=== PATIENT | female | born 1970 | race Caucasian/White ===

== ENCOUNTER 2021-02-11 17:52 | Inpatient (IN) | payer OTHER ==
[~2021-02-11] VITALS: Ht 165.1 cm; Wt 56.3 kg
[2021-02-11 18:06] VITALS: BP 120/85
--- NOTE | 2021-02-11 18:10 | NUR ---
ARRIVAL PATIENT ARRIVED TO ED3 VIA W/C, C/O OF SHORTNESS OF BREATH AND PAIN WITH COUGHING FOR THE PAST COUPLE OF DAYS, DOES HAVE A HISTORY OF BREAST CANCER AND HAS BOTH BREAST REMOVED, WAS TOLD BY A CLINIC IN [place] THAT SHE MAY NOW HAVE CANCER IN HER LUNGS,CAME TO THE ED FOR EVAL,
[2021-02-11] MEDS ORDERED: TESSALON PERLE PO STA (18:13)
[2021-02-11] MEDS ORDERED: TESSALON PERLE PO ONE (18:18)
[2021-02-11 18:26] LABS: BASOPHIL # 0.1 10^3/uL (0.0-0.1); EOSINOPHIL # 0.1 10^3/uL (0.0-0.2); EOSINOPHIL % 1.9 % (0.0-5.0); MEAN CORP HGB 30.7 pg (26-34); MONOCYTES # 0.3 10^3/uL (0.3-0.8); MONOCYTES % 4.6 % (5.0-12.0); NEUTROPHIL # 5.4 10^3/uL (1.8-7.7); NEUTROPHILS % 74.5 % (41.0-85.0); PLATELET COUNT 321 10^3/uL (150-400); RED CELL DISTRIBUTION WIDTH 14.7 % (11.5-14.5)
--- NOTE | 2021-02-11 18:40 | DIREP ---
PROCEDURE:CHEST 1 VIEW COMPARISON:None. INDICATIONS:CHEST PAIN FINDINGS: LUNGS/PLEURA:Diffuse interstitial prominence and mild silhouetting of the right hemidiaphragm. No sizable pleural effusion. CARDIAC:Normal cardiac silhouette and normal pulmonary vascularity. MEDIASTINUM:Normal BONES:Normal OTHER:No additional findings. CONCLUSION:Chronic changes versus interstitial edema or pneumonia. Dictated by: Khalida Avendano MD on 02/11/2021 at 06:37 PM
[2021-02-11 18:43] LABS: CALCIUM 8.8 mg/dL (8.4-10.5); CARBON DIOXIDE 24.2 mmol/L (20.0-32)
[2021-02-11] MEDS ORDERED: MORPHINE SULFATE ONE (20:08)
[2021-02-11] MEDS ORDERED: ATIVAN ONE (20:36)
[2021-02-11] MEDS ORDERED: ATIVAN IV STA (20:50)
[2021-02-11 21:11] LABS: BILIRUBIN,URINE NEGATIVE (NEGATIVE); UA COLOR YELLOW
[2021-02-11 21:12] LABS: UROBILINOGEN,URINE 0.2 E.U./dL (0.2)
--- NOTE | 2021-02-11 22:40 | DIREP ---
PROCEDURE:CTA CHEST COMPARISON:None. INDICATIONS:chest pain TECHNIQUE:Post contrast axial images through the chest with multiplanar MIP/3D reconstructions. FINDINGS: PULMONARY ARTERIES:Patent. LUNGS:Scattered areas of presumed subsegmental atelectasis in the bilateral lungs. PLEURA:Moderate dependent bilateral pleural effusions. CARDIAC:Normal size heart and normal pulmonary vascularity. RV:LV ratio (norm <0.9): Not applicable in the absence of pulmonary embolism. THORACIC AORTA:Normal. MEDIASTINUM:Normal. THYROID:Normal. BONES:Normal. OTHER:No additional findings. CONCLUSION: No evidence of pulmonary embolus. Moderate dependent bilateral pleural effusions Dictated by: Morgan Case M.D. on 02/11/2021 at 10:36 PM
[2021-02-11] MEDS ORDERED: ROBITUSSIN AC PO STA (22:45)
[2021-02-11] MEDS ORDERED: ROBITUSSIN AC ONE (23:39)
[2021-02-11] MEDS: DILAUDID IV PRN (23:44)
[2021-02-12] MEDS ORDERED: ZITHROMAX PO ONE
[2021-02-12] MEDS ORDERED: NS 100ML 100 ML IV ONE (00:01)
[2021-02-12] MEDS ORDERED: ZITHROMAX ONE ×2 (00:01→00:08)
[2021-02-12] MEDS ORDERED: ROCEPHIN ONE (00:01)
[2021-02-12] MEDS: ROCEPHIN 1,000 MG in NS 100ML 100 ML IV SCH ×2 (00:10→23:13)
--- NOTE | 2021-02-12 00:26 | ER.PDOC ---
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 Patient states that the chest pain has been severe and is worse with big breaths and coughing causing her to have to splint her breathing. She also endorses some yellow coverage sputum production with a cough. She denies fevers but endorses chills.She has had no known sick conta cts. She was told had previous clinic in the past that she might have a lung cancer but she is not had any additional follow-up on this. Allergies: Coded Allergies: aspirin (Verified Allergy, Unknown, 02/11/21) Past Medical History Medical History: cancer Surgical History: cancer surgery, hysterectomy Social History Alcohol Use: occassionally Drug Use: none Review of Systems Constitutional: denies no symptoms reported, denies see HPI; chills; denies diaphoresis, denies fever, denies malaise, denies weakness, denies other EENTM: denies no symptoms reported, denies see HPI, denies eye pain, denies blurred vision, denies tearing, denies double vision, denies ear pain, denies ear discharge, denies nose pain, denies nose congestion, denies throat pain, denies throat swelling, denies mouth pain, denies mouth swelling, denies other Respiratory: denies no symptoms reported, denies see HPI; cough; denies orthopnea; shortness of breath; denies stridor, denies wheezing, denies other Cardiovascular: denies no symptoms reported, denies see HPI; chest pain (With coughing.); denies edema, denies palpitations, denies syncope, denies other Gastrointestinal: denies no symptoms reported, denies see HPI, denies abdominal pain, denies constipation, denies diarrhea, denies nausea, denies vomiting, denies other Genitourinary: denies no symptoms reported, denies see HPI, denies discharge, denies dysuria, denies frequency, denies hematuria, denies pain, denies other Musculoskeletal: denies no symptoms reported, denies see HPI, denies back pain, denies gout, denies joint pain, denies joint swelling, denies muscle pain, denies muscle stiffness, denies neck pain, denies other Skin: denies no symptoms reported, denies see HPI, denies change in color, denies change in hair/nails, denies dryness, denies lesions, denies lumps, denies rash, denies other Psychiatric/Neurological: denies no symptoms reported, denies see HPI, denies anxiety, denies depressed, denies emotional problems, denies headache, denies numbness, denies paresthesia, denies pre-existing deficit, denies seizure, denies tingling, denies tremors, denies weakness, denies other Hematologic/Lymphatic: denies no symptoms reported, denies see HPI, denies anemia, denies blood clots, denies easy bleeding, denies easy bruising, denies swollen glands, denies other Immunological/Allergic: denies no symptoms reported, denies see HPI, denies food allergy, denies grass allergy, denies mold allergy, denies pollen allergy, denies HIV/AIDS, denies transplant Physical Exam General Appearance: Moderate Distress EENT: eyes nml inspection, nml ENT inspection, pharynx nml Neck: Non-Tender, Full Range of Motion Respiratory: decreased breath sounds, rhonchi, other (Patient with chest wall tenderness. Patient sitting up in bed splinting due to pain. 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, No Motor/Sensory Deficits Skin: Normal Color Results/Orders Results/Orders Orders - JEN HARPER DO Cbc With Auto Diff (02/11/21 18:13) Comprehensive Metabolic Panel (02/11/21 18:13) Xr Chest 1v (02/11/21 18:13) Benzonatate (Tessalon Perle) (02/11/21 18:13) Morphine Sulfate (Morphine Sulfate) (02/11/21 20:08) Cta Chest (02/11/21 20:15) Lorazepam (Ativan) (02/11/21 20:36) Lorazepam (Ativan) (02/11/21 20:50) Urinalysis (02/11/21 20:55) Urine Culture (02/11/21 20:30) Hydromorphone Hcl (Dilaudid) (02/11/21 22:00) Codeine Phosphate/Guaifenesin (Robitussi (02/11/21 22:45) Codeine Phosphate/Guaifenesin (Robitussi (02/11/21 23:39) Ceftriaxone Sodium (Rocephin) (02/12/21 00:00) Azithromycin (Zithromax) (02/12/21 00:00) Probnp B-Type Central Processing Tech (02/11/21 23:57) 0.9 % Sodium Chloride (Ns 100ml) (02/12/21 00:01) Ceftriaxone Sodium (Rocephin) (02/12/21 00:01) Azithromycin (Zithromax) (02/12/21 00:01) Azithromycin (Zithromax) (02/12/21 00:08) Routine Vital Signs (02/12/21 00:34) Up Ad Lyla/Low Risk Vte (02/12/21 00:34) Cbc With Auto Diff (02/13/21 05:00) Comprehensive Metabolic Panel (02/13/21 05:00) Admit Orders (02/12/21 00:34) Ekg-Routine (02/12/21 00:40) Vital Signs Date Time Temp Pulse Resp B/P (MAP) Pulse Ox O2 Delivery O2 Flow Rate FiO2 02/11/21 18:06 97.9 117 28 02/11/21 18:06 97.9 117 28 92 02/11/21 18:06 97.9 117 28 120/85 (97) 92 Room Air Administered Medications Medications (Trade) Dose Ordered Sig/Damian Route PRN Reason Start Time Stop Time Status Last Admin Dose Admin Azithromycin (Zithromax) 500 mg OT ONCE PO 02/12/21 00:00 02/12/21 00:01 DC 02/12/21 00:14 500 MG Benzonatate (Tessalon Perle) 100 mg STAT STAT PO 02/11/21 18:13 02/11/21 18:15 DC 02/11/21 18:20 100 MG Ceftriaxone Sodium 1000 mg/ Sodium Chloride 100 ml @ 100 mls/hr Q24HRS IV 02/12/21 00:00 03/14/21 00:00 02/12/21 00:10 100 MLS/HR Hydromorphone HCl (Dilaudid) 0.5 mg Q4H PRN IV PAIN 7 - 10 02/11/21 22:00 03/13/21 21:59 UNV 02/11/21 23:44 0.5 MG Lorazepam (Ativan) 1 mg STAT STAT IV 02/11/21 20:50 02/11/21 20:51 DC 02/11/21 20:50 1 MG Laboratory Tests Test 02/11/21 18:20 02/11/21 20:30 White Blood Count 7.2 10^3/uL (4.5-11.0) Red Blood Count 3.84 10^6/uL (4.00-5.20) L Hemoglobin 11.8 g/dL (12.0-15.0) L Hematocrit 37.0 % (36.0-46.0) Mean Corpuscular Volume 96.4 fL (78-100) Mean Corpuscular Hemoglobin 30.7 pg (26-34) Mean Corpuscular Hemoglobin Concent 31.9 g/dL (33-36.5) L Red Cell Distribution Width 14.7 % (11.5-14.5) H Platelet Count 321 10^3/uL (150-400) Mean Platelet Volume 10.2 fL (7.8-11.0) Neutrophils (%) (Auto) 74.5 % (41.0-85.0) Lymphocytes (%) (Auto) 18.0 % (24.0-44.0) L Monocytes (%) (Auto) 4.6 % (5.0-12.0) L Neutrophils # (Auto) 5.4 10^3/uL (1.8-7.7) Lymphocytes # (Auto) 1.30 10^3/uL1 (1.0-4.8) Monocytes # (Auto) 0.3 10^3/uL (0.3-0.8) Absolute Immature Granulocyte (auto 0.02 10^3 u/L (0-2) Absolute Eosinophils (auto) 0.1 10^3/uL (0.0-0.2) Immature Granulocytes % 0.30 % (0.00-0.50) Eosinophils % 1.9 % (0.0-5.0) Basophils % 1.0 % (0.0-0.2) H Basophils # 0.1 10^3/uL (0.0-0.1) Sodium Level 142 mmol/L (132-145) Potassium Level 4.4 mmol/L (3.6-5.2) Chloride Level 107.0 mmol/L (96-109) Carbon Dioxide Level 24.2 mmol/L (20.0-32) Anion Gap 15.2 Blood Urea Nitrogen 19 mg/dL (7-18) H Creatinine 1.36 mg/dL (0.59-1.40) Estimated GFR () 50.2 (>/=60) Est GFR (CKD-EPI)(Non-Afr Kosovan) 41.5 (>/=60) BUN/Creatinine Ratio 13.0 Glucose Level 123 mg/dL (70-110) H Calcium Level 8.8 mg/dL (8.4-10.5) Total Bilirubin 0.7 mg/dL (0.2-1.0) Aspartate Amino Transferase (AST) 29 U/L (0-35) Alanine Aminotransferase (ALT) 72 U/L (12-78) Alkaline Phosphatase 118 U/L (50-136) Pro-B-Type Natriuretic Peptide 09300 pg/mL (0-125) H Total Protein 6.1 g/dL (6.4-8.2) L Albumin 3.3 g/dL (3.4-5.0) L Globulin 2.8 Albumin/Globulin Ratio 1.178 Urine Collection Type UNKNOWN Urine Color YELLOW Urine Appearance CLEAR Urine Bilirubin NEGATIVE (NEGATIVE) Urine Ketones NEGATIVE (NEGATIVE) Urine Specific [place]ouch >=1.030 (1.005-1.030) Urine pH 5.5 (4.5-8.0) Urine Protein 30 mg/dL (NEGATIVE) H Urine Urobilinogen 0.2 E.U./dL (0.2) Urine Nitrate NEGATIVE (NEGATIVE) Urine Leukocyte Esterase NEGATIVE (NEGATIVE) Urine Glucose (Auto)(UA) NEGATIVE (NEGATIVE) Urine Blood MODERATE (NEGATIVE) H Urine RBC 5-10 RBC/HPF (NONE SEEN) H Urine WBC 2-5 WBC/HPF (0-2) Urine Squamous Epithelial Cells MODERATE #/HPF (FEW) Urine Calcium Oxalate Crystals FEW (NONE SEEN) Urine Bacteria FEW (NONE SEEN) H Urine Other MUCOUS 1+ #/HPF Progress Progress Patient received Dilaudid for pain control and Ativan due to severe anxiety in the CT machine. Patient had continued severe chest pain throughout ER course that began to subside after pain medication was administered. She did require some supplemental oxygen due to mild hypoxia in the high 80s.CTPA without evidence of pulmonary embolism but does demonstrate moderate bilateral pleural effusions. EKG/XRAY/CT/US EKG Comments: EKG with sinus tachycardia nonspecific T wave changes XRAY Comments: X-ray with infiltrates versus edema CT Comments: No evidence of pulmonary embolism noted bilateral moderate polyp pulmonary Consult/PCP Time Consult/PCP Called: 23:54 Consult/PCP: Hospitalist, Dr. Gallo Reason/Comments: Dyspnea pulmonary effusions agreed for inpatient admission to observation. ER DEPART Departure Time of Disposition: 01:02 Disposition: 09 ADMITTED INPATIENT Impression: Primary Impression: Dyspnea Additional Impression: Pleural effusion Condition: Improved Referrals: PCP,UNKNOWN (PCP) PRIMARY CARE PROVIDER Duration or Time Spent with Pa: 30 Problem Qualifiers JEN HARPER DO Feb 12, 2021 00:26
--- NOTE | 2021-02-12 00:43 | PCM.EKG ---
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
--- NOTE | 2021-02-12 00:59 | NUR ---
REPORT CALLED AND GIVEN TO JEFF BLUNT AT THIS TIME.
[2021-02-12] MEDS ORDERED: MORPHINE SULFATE IV PRN (01:30)
[2021-02-12] MEDS ORDERED: ZOFRAN IV PRN (01:30)
[2021-02-12] MEDS ORDERED: TYLENOL PO PRN ×2 (01:30→08:30)
[2021-02-12 01:35] VITALS: BP 115/86
--- NOTE | 2021-02-12 01:35 | NUR ---
ARRIVAL TO M/S VIA WHEELCHAIR NO ACUTE DISTRESS NOTED REC REPORT FROM MARIBEL PERZE ASSUMED CARE
--- NOTE | 2021-02-12 02:00 | NUR ---
TELEPHONE ORDERS DR GO TYLENOL 650MG PO Q6PRN PAIN 1-3 & FEVER TRAMADOL 50MG PO Q6PRN FOR PAIN 4-6 MORPHINE 2MG IV Q4PRN FOR PAIN 7-10 ZOFRAN IV 4MG Q6PRN FOR N/V
[2021-02-12 04:22] VITALS: BP 124/80
[2021-02-12 08:11] VITALS: BP 129/82
[2021-02-12] MEDS ORDERED: LASIX IV STA ×2 (08:24→09:24)
[2021-02-12 08:49] LABS: BASOPHIL % 0.3 % (0.0-0.2); EOSINOPHIL # 0.2 10^3/uL (0.0-0.2); EOSINOPHIL % 2.6 % (0.0-5.0); LYMPHOCYTES # 1.23 10^3/uL1 (1.0-4.8); LYMPHOCYTES % 21.1 % (24.0-44.0); MONOCYTES # 0.3 10^3/uL (0.3-0.8); MONOCYTES % 4.5 % (5.0-12.0); NEUTROPHIL # 4.2 10^3/uL (1.8-7.7); NEUTROPHILS % 71.3 % (41.0-85.0); PLATELET COUNT 278 10^3/uL (150-400); RED CELL DISTRIBUTION WIDTH 14.9 % (11.5-14.5)
[2021-02-12 09:08] LABS: CALCIUM 8.9 mg/dL (8.4-10.5); CARBON DIOXIDE 25.8 mmol/L (20.0-32)
[2021-02-12] MEDS: ULTRAM PO PRN (10:41)
--- NOTE | 2021-02-12 12:13 | PCM.HP ---
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 Patient states that the chest pain has been severe and is worse with big breaths and coughing causing her to have to splint her breathing. She also endorses some yellow coverage sputum production with a cough. She denies fevers but endorses chills.She has had no known sick contacts. She was told had previous clinic in the past that she might have a lung cancer but she is not had any additional follow-up on this. Work-up in the emergency room including CT of the chest was negative for pulmonary embolism but it did show moderate bilateral pleural effusions. proBNP was more than 17,000. In the emergency room patient empirically was given IV antibiotics for suspected infection. Patient was admitted for further management. Past Medical History Pulmonary: Asthma Heme/Onc: Cancer Past Social History Smoke: 1 pack per day Alcohol: none Review of Systems Constitutional: Chills; No: Fever Eyes: No: Vision change, Conjunctivae inflammation ENT: No: Ear discharge, Nose pain Respiratory: Cough, Shortness of breath, SOB with excertion, Wheezing, Pleuritic Pain, Sputum Cardiovascular: No: Chest Pain, Palpitations Gastrointestinal: Nausea; No: Vomiting Genitourinary: No Frequency, No Incontinence Musculoskeletal: back pain; No: neck pain Skin: No: Rash, Jaundice Neurological: No: Numbness, Change in speech Allergies: Coded Allergies: aspirin (Verified Allergy, Unknown, 02/11/21) VTE VTE Risk Total Score: 1 VTE Risk Score VTE Risk: Score 0-1 = Low Risk (Aggressive mobilization; early ambulation; no VTE prophylaxis required) Score 2: Moderate Risk (Intermittent/Pneumatic Compression Device OR Lovenox/Heparin/Coumadin) Score 3-4: High Risk (Intermittent/Pneumatic Compression Device AND Lovenox/Heparin/Coumadin) Score > or =5: Highest Risk (Intermittent/Pneumatic Compression Device AND Lovenox/Heparin/Coumadin) Antico:Hep/LMWH/Coum/Xarelto: Yes Mechanical device ordered: Yes Exam Vital Signs Vital Signs Date Time Temp Pulse Resp B/P (MAP) Pulse Ox O2 Delivery O2 Flow Rate FiO2 02/12/21 09:43 129/82 02/12/21 08:11 97.7 117 20 95 Room Air 02/12/21 04:22 2.00 General Appearance: Alert, Oriented X3, moderate distress HEENT: Atraumatic, PERRLA Respiratory: Other (Diminished air entry both bases with dullness to p ercussion.) Cardiovascular: Regular rate, Normal S1, Normal S2 Abdominal: Normal bowel sounds, Soft, No tenderness Extremities: No clubbing, No cyanosis Skin: No rash, No breakdown Neuro: Normal gait, Normal speech, Normal tone Psych/Mental Status: Mental status NL, Other (Anxious) Assessment/Plan Assessment/Plan Problems: (1) Acute CHF ICD Code: I50.9 - Heart failure, unspecified SNOMED: 65052646 (2) History of breast cancer ICD Code: Z85.3 - Personal history of malignant neoplasm of breast SNOMED: 762969078 (3) Pneumonia ICD Code: J18.9 - Pneumonia, unspecified organism SNOMED: 058576353 (4) Pleural effusion Status: Acute ICD Code: J90 - Pleural effusion, not elsewhere classified SNOMED: 52006812 (5) Dyspnea ICD Code: R06.00 - Dyspnea, unspecified SNOMED: 302768806 (6) Cigarette smoker ICD Code: F17.210 - Nicotine dependence, cigarettes, uncomplicated SNOMED: 96418952 Patient History: Patient reports no known family medical history. 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 Patient states that the chest pain has been severe and is worse with big breaths and coughing causing her to have to splint her breathing. She also endorses some yellow coverage sputum production with a cough. She denies fevers but endorses chills.She has had no known sick contacts. She was told had previous clinic in the past that she might have a lung cancer but she is not had any additional follow-up on this. Work-up in the emergency room including CT of the chest was negative for pulmonary embolism but it did show moderate bilateral pleural effusions. proBNP was more than 17,000. In the emergency room patient empirically was given IV antibiotics for suspected infection. Patient was admitted for further management. Plan Admit IV diuresis, 2D echo Serial troponins Empiric antibiotic for now, cannot rule out entirely underlying infection Counseling for smoking cessation GI and DVT prophylaxis as appropriate Expect length of stay more than 1 midnight BARBARA GO MD Feb 12, 2021 12:13
[2021-02-12 12:26] VITALS: BP 110/78
[2021-02-12] MEDS: DILAUDID IV PRN ×2 (13:29→19:14)
[2021-02-12] MEDS: HEPARIN SQ SCH ×2 (13:30→21:04)
--- NOTE | 2021-02-12 13:32 | PCM.ECHO ---
APPROVED REPORT EXAM: Comprehensive 2D, Doppler, and color-flow Echocardiogram. Patient Location: IN-PATIENT Indications Congestive Heart Failure 2D Dimensions LVOT Diameter 2.01 (1.8-2.4cm) LVEF(%) 27.21 (>50%) M-Mode Dimensions RVDd 2.45 (2.1-3.2cm) Left Atrium(MM) 3.80 (2.5-4.0cm) IVSd 0.85 (0.7-1.1cm) Aortic Root 1.85 (2.2-3.7cm) LVDd 4.70 (4.0-5.6cm) Aortic Cusp Exc 1.05 (1.5-2.0cm) PWd 0.85 (0.7-1.1cm) MV EPSS 1.13 (<0.5cm) IVSs 1.00 cm FS (%) 10.65 % LVDs 4.20 (2.0-3.8cm) ESV(Teich) 79.65 ml PWs 0.95 cm LVEF(%) 23.33 (>50%) Volumes Biplane 2D LV Volumes Biplane 2D LA Volumes LVEDv A4C 105.64 mL LA ESV Index LVESv A4C 76.90 mL Aortic Valve AoV Peak Gavin. 0.65 m/s AoV VTI 9.70 cm AO Peak GR. 1.90 mmHg AO Mean GR. 1.15 mmHg LVOT VTI 6.66 cm LVOT Peak Gavin. 0.33 m/s RAHEEM(VTI)/BSA 2.18 cm2/m2 RAHEEM (VTI) 2.18 cm2 Mitral Valve MV E Velocity 1.55m/s MR Peak Gr. 54.95mmHg TDI Lateral E' P. V 0.13m/s Medial E' P. V 0.08m/s Pulmonary Valve PV Peak Velocity 0.50m/s PV Peak Grad. 1.00mmHg RVOT VTI 7.25cm Tricuspid Valve TR P. Velocity 2.20m/s RAP ESTIMATE 10.00mmHg TR Peak Gr. 20.08mmHg RVSP 30.08mmHg LEFT VENTRICLE Left ventricle is severely dilated. Left ventricular systolic function is severely decreased. There is normal left ventricular wall thickness. There is global hypokinesis of the left ventricle. Severe diastolic dysfunction is present (restrictive filling). There is no ventricular septal defect visualized. No left ventricle thrombus noted on this study. LVEF is 15-20%. RIGHT VENTRICLE Right ventricle is severely dilated. The right ventricular systolic function is normal. There is normal right ventricular wall thickness. ATRIA Left atrium is severely dilated. Right atrium is severely dilated. The interatrial septum is intact with no evidence for an atrial septal defect. AORTIC VALVE The aortic valve is normal in structure. There is no aortic valvular stenosis. Moderate to severe aortic regurgitation There is no aortic valvular vegetation. MITRAL VALVE The mitral valve is normal in structure. There is no mitral valve stenosis. Severe mitral regurgitation. There is no evidence of mitral valve vegetations. TRICUSPID VALVE The tricuspid valve is normal in structure. There is no tricuspid valve stenosis. Severe tricuspid regurgitation. Severe pulmonary hypertension. There is no tricuspid valve vegetations. PULMONIC VALVE Pulmonic valve is not well visualized. There is no pulmonic valvular stenosis. Severe pulmonic regurgitation. GREAT VESSELS The aortic root is normal in size. Pulmonary artery is not well visualized. Aortic arch is not well visualized. IVC is dilated. PERICARDIUM There is no pericardial effusion. There is no pleural effusion. Other Information Study Quality: Fair <Conclusion> Left ventricular systolic function is severely decreased. LVEF is 15-20%. Severe diastolic dysfunction is present (restrictive filling). There is global hypokinesis of the left ventricle. Left ventricle is severely dilated. Right ventricle is severely dilated. Left atrium is severely dilated. Right atrium is severely dilated. Moderate to severe aortic regurgitation Severe mitral regurgitation. Severe tricuspid regurgitation. Severe pulmonic regurgitation. Severe pulmonary hypertension. IVC is dilated. Electronically signed by : MELANY REMY. 02/12/2021 13:31:47
--- NOTE | 2021-02-12 14:30 | NUR ---
UPDATE NOTIFIED DR REMY PATIENT HEART RATE OF HEART RATE OF 110. DR REMY STATED HE PUT IN MEDICATION ORDERS. WILL CONTINUE TO MONITOR
--- NOTE | 2021-02-12 15:10 | NUR ---
[facility] PER DR REMY START PROCESS FOR [facility]. CM FAXED SIGNED ORDER AND FACE SHEET TO [facility]. ELLIS GARZA NOTIFIED OF REFERRAL AND HE WILL PROCESS THE REFERRAL ON February. PER DR REMY PATIENT DOES NOT HAVE TO HAVE THE [facility] TO DISCHARGE.
[2021-02-12 16:53] VITALS: BP 117/85
[2021-02-12 19:50] VITALS: BP 123/78
[2021-02-12] MEDS: COREG PO SCH (21:04)
[2021-02-12] MEDS: NICOTINE 21MG PATCH TD SCH (21:27)
[2021-02-12] MEDS: XANAX PO PRN (21:27)
[2021-02-13] VITALS (7 sets, daily range): BP systolic 99–124; BP diastolic 68–87
--- NOTE | 2021-02-13 02:39 | CNH ---
DATE OF CONSULTATION: 02/12/2021 DICTATOR NAME: MELANY REMY DO CONSULTATION REPORT REASON FOR CONSULTATION: Acute decompensated heart failure/chest pain. HISTORY OF PRESENT ILLNESS: This is a 50-year-old female, who presented to the emergency room with progressively worsening shortness of breath with associated chest pain and productive cough. She had missed her symptoms of orthopnea and paroxysmal nocturnal dyspnea. Upon presentation to the ED, ProBNP was noted to be significantly elevated at 17,246. Troponin was negative x2. A diagnosis of acute decompensated heart failure was made and a consultation was placed to cardiology service. PAST MEDICAL HISTORY: 1. Bilateral breast carcinoma, status post mastectomies with chemotherapy done 4 years ago. 2. Asthma. PAST SURGICAL HISTORY: Bilateral breast mastectomies and hysterectomy. ALLERGIES: ASPIRIN. MEDICATIONS: She does not take any medications at home. SOCIAL HISTORY: She denies illicit drug use, admits to occasional alcohol use, and denies tobacco use. She does have a history of tobacco abuse, of which she smoked 1-2 pack of cigarettes for 20 years, but quit 4 years ago. FAMILY HISTORY: She admits a family history of premature coronary artery disease, but denies sudden cardiac . REVIEW OF SYSTEMS: As per HPI and as per previous records, all systems are reviewed and negative for interval change. PHYSICAL EXAMINATION: VITAL SIGNS: Blood pressure is 117/85, respiratory rate is 18, pulse is 115, temperature 98.2, and pulse oximetry 96% on room air. GENERAL: She is in no apparent distress, alert and oriented x3. HEENT: Normocephalic, atraumatic. Extraocular muscles intact. Pupils equally round, reactive to light and accommodation. CARDIAC: S1, S2, +3/6 holosystolic murmur. No, gallops, rubs, or clicks. LUNGS: Decreased breath sounds bilaterally. ABDOMEN: Soft, nontender, nondistended. Positive bowel sounds in all four quadrants. No hepatosplenomegaly. EXTREMITIES: No cyanosis, no clubbing, +1 pitting edema bilaterally. NEUROLOGIC: No neurological deficits. Sensation is intact. IMPRESSION: 1. Acute decompensated heart failure secondary to systolic and diastolic dysfunction. 2. History of bilateral breast carcinoma, status post chemotherapy for 6 months -- this was 4 years ago. 3. Status post bilateral mastectomies. 4. Left ventricular ejection fraction of 15-20% on 2D echo done on this admission. 5. Dilated cardiomyopathy with biventricular dilatation. 6. Severe mitral regurgitation. 7. Severe tricuspid regurgitation. 8. Severe pulmonic regurgitation. 9. Severe pulmonary hypertension. 10. Biatrial dilatation seen on 2D echo. RECOMMENDATIONS: This is a 50-year-old female who presented to the emergency room with progressively worsening shortness of breath, chest discomfort with orthopnea, paroxysmal nocturnal dyspnea. She was found to be in acute decompensated heart failure secondary to systolic and diastolic dysfunction. A 2D echo done on this admission shows severely decreased left ventricular ejection fraction of 15-20% with global hypokinesis of the left ventricle. She is also noted to have severe multivalvular disease. I suspect this cardiac picture is likely secondary to chemotherapy completed by the patient 4 years ago following a diagnosis of bilateral breast carcinoma. Prior to her diagnosis with breast cancer, she had a long-term history of tobacco abuse, of which she smoked 1-2 packs of cigarettes for over 20 years. I am going to set her up for left heart catheterization in the morning to rule out obstructive coronary artery disease. She has been started on Coreg 3.125 mg p.o. b.i.d., lisinopril 5 mg p.o. every day, and Lasix 40 mg IV every day. I would certainly recommend strict I's and O's, daily weights, fluid restriction as well as sodium restriction. EKG does not show any evidence of myocardial ischemia. Troponin is also negative x2. Given her severe cardiomyopathy, she certainly would benefit from a wearable cardioverter device for primary prevention of sudden cardiac . A consultation has been placed to psychosocial rehabilitation counselor/case management for evaluation for LifeVest for the patient. Eventually, her multivalvular disease will be addressed in the outpatient setting, once the patient becomes euvolemic. She will be kept n.p.o. after midnight for left heart catheterization tomorrow. Further recommendations will be made based on the overall clinical course. Amada GILMORE D.O. DR: BILL DELGADO: [phone] RECEIPT: [id number]
[2021-02-13] MEDS: DILAUDID IV PRN ×2 (03:07→08:07)
[2021-02-13] MEDS: HEPARIN SQ SCH ×3 (05:17→21:46)
[2021-02-13 05:39] LABS: BASOPHIL # 0.1 10^3/uL (0.0-0.1); BASOPHIL % 1.5 % (0.0-0.2); EOSINOPHIL # 0.2 10^3/uL (0.0-0.2); EOSINOPHIL % 4.9 % (0.0-5.0); LYMPHOCYTES # 1.04 10^3/uL1 (1.0-4.8); MEAN CORP HGB 30.6 pg (26-34); MONOCYTES # 0.2 10^3/uL (0.3-0.8); MONOCYTES % 5.8 % (5.0-12.0); NEUTROPHIL # 1.8 10^3/uL (1.8-7.7); NEUTROPHILS % 55.8 % (41.0-85.0); PLATELET COUNT 250 10^3/uL (150-400); RED CELL DISTRIBUTION WIDTH 14.4 % (11.5-14.5)
[2021-02-13 05:56] LABS: CALCIUM 8.4 mg/dL (8.4-10.5); CARBON DIOXIDE 26.9 mmol/L (20.0-32)
[2021-02-13] MEDS: LASIX IV SCH (08:34)
[2021-02-13] MEDS: COREG PO SCH ×2 (08:34→20:17)
[2021-02-13] MEDS: ZESTRIL PO SCH (08:34)
[2021-02-13] MEDS: PROTONIX PO SCH (08:34)
[2021-02-13] MEDS: NICOTINE 21MG PATCH TD SCH (08:35)
[2021-02-13] MEDS ORDERED: LEVAQUIN 100 ML IV SCH (09:00)
--- NOTE | 2021-02-13 10:52 | PRM.PN ---
Subjective Subjective Date: Feb 13, 2021 Time: 08:00 Subjective Patient sitting up up in bed. Still orthopneic. But feeling better. Appreciate cardiology input. 2D echo showed dilated cardiomyopathy with EF 15/20%. Patient for heart cath today. Patient was started on Diuretic, RUYD inhibitor and beta-stephen. Patient History: Patient reports no known family medical history. VTE VTE Risk Total Score: 1 VTE Risk Score VTE Risk: Score 0-1 = Low Risk (Aggressive mobilization; early ambulation; no VTE prophylaxis required) Score 2: Moderate Risk (Intermittent/Pneumatic Compression Device OR Lovenox/Heparin/Coumadin) Score 3-4: High Risk (Intermittent/Pneumatic Compression Device AND Lovenox/Heparin/Coumadin) Score > or =5: Highest Risk (Intermittent/Pneumatic Compression Device AND Lovenox/Heparin/Coumadin) Antico:Hep/LMWH/Coum/Xarelto: Yes Mechanical device ordered: Yes Review of Systems Constitutional: Chills; No: Fever Eyes: No: Vision change, Conjunctivae inflammation ENT: No: Ear discharge, Nose pain Respiratory: Cough, Shortness of breath, SOB with excertion, Wheezing, Pleuritic Pain, Sputum Cardiovascular: No: Chest Pain, Palpitations Gastrointestinal: Nausea; No: Vomiting Genitourinary: No Frequency, No Incontinence Musculoskeletal: back pain; No: neck pain Skin: No: Rash, Jaundice Neurological: No: Numbness, Change in speech Allergies: Coded Allergies: aspirin (Verified Allergy, Unknown, 02/11/21) Objective Vitals and I/O Vital Sign - Last 24 Hours 02/12/21 02/12/21 02/12/21 02/12/21 12:26 13:00 16:53 19:50 Temp 97.5 98.2 98.3 Pulse 117 95 115 110 Resp 20 18 20 B/P (MAP) 110/78 (89) 117/85 (96) 123/78 (93) Pulse Ox 94 96 98 O2 Delivery Room Air Room Air 02/12/21 02/12/21 02/13/21 02/13/21 21:04 21:16 00:02 04:17 Temp 98.7 98.1 Pulse 110 109 103 Resp 18 18 B/P (MAP) 123/78 116/84 (95) 116/81 (93) Pulse Ox 96 98 O2 Delivery Room Air 02/13/21 02/13/21 02/13/21 02/13/21 08:08 08:34 08:34 08:34 Temp 97.7 Pulse 103 103 Resp 20 B/P (MAP) 113/80 (91) 113/80 113/80 113/80 Pulse Ox 97 Intake and Output 02/13/21 07:00 Intake Total 520 ml Balance 520 ml General: Alert, Oriented X3, moderate distress HEENT: Atraumatic, PERRLA Lungs: Other (Diminished air entry both bases with dullness to percussion.) Heart: Regular rate, Normal S1, Normal S2 Abdomen: Normal bowel sounds, Soft, No tenderness Extremities: No clubbing, No cyanosis Neuro: Normal gait, Normal speech, Normal tone Psych/Mental Status: Mental status NL, Other (Anxious) All Results(Lab/Rad) Laboratory Tests Test 02/12/21 12:05 02/12/21 16:04 02/13/21 05:25 Troponin I < 0.02 ng/mL < 0.02 ng/mL White Blood Count 3.3 10^3/uL Red Blood Count 3.59 10^6/uL Hemoglobin 11.0 g/dL Hematocrit 34.1 % Mean Corpuscular Volume 95.0 fL Mean Corpuscular Hemoglobin 30.6 pg Mean Corpuscular Hemoglobin Concent 32.3 g/dL Red Cell Distribution Width 14.4 % Platelet Count 250 10^3/uL Mean Platelet Volume 10.6 fL Neutrophils (%) (Auto) 55.8 % Lymphocytes (%) (Auto) 32.0 % Monocytes (%) (Auto) 5.8 % Neutrophils # (Auto) 1.8 10^3/uL Lymphocytes # (Auto) 1.04 10^3/uL1 Monocytes # (Auto) 0.2 10^3/uL Absolute Immature Granulocyte (auto 0.01 10^3 u/L Absolute Eosinophils (auto) 0.2 10^3/uL Immature Granulocytes % 0.30 % Eosinophils % 4.9 % Basophils % 1.5 % Basophils # 0.1 10^3/uL Sodium Level 138 mmol/L Potassium Level 3.7 mmol/L Chloride Level 101.0 mmol/L Carbon Dioxide Level 26.9 mmol/L Anion Gap 13.8 Blood Urea Nitrogen 17 mg/dL Creatinine 1.10 mg/dL Estimated GFR () 64.1 Est GFR (CKD-EPI)(Non-Afr [place]an) 53.0 BUN/Creatinine Ratio 15.0 Glucose Level 118 mg/dL Calcium Level 8.4 mg/dL Total Bilirubin 0.4 mg/dL Aspartate Amino Transf (AST/SGOT) 30 U/L Alanine Aminotransferase (ALT/SGPT) 68 U/L Alkaline Phosphatase 125 U/L Total Protein 5.9 g/dL Albumin 2.9 g/dL Globulin 3.0 Albumin/Globulin Ratio 0.966 Triglycerides Level 87 mg/dL Cholesterol Level 107 mg/dL LDL Cholesterol, Calculated 50.6 VLDL Cholesterol, Calculated 17.4 HDL Cholesterol 39 mg/dL Cholesterol Ratio (LDL/HDL) 1.2 Cholesterol/HDL Ratio 2.450360 Current Medications Medications (Trade) Dose Ordered Sig/Damian Route PRN Reason Start Time Stop Time Status Last Admin Dose Admin Benzonatate (Tessalon Perle) 100 mg STAT STAT PO 02/11/21 18:13 02/11/21 18:15 DC 02/11/21 18:20 Benzonatate (Tessalon Perle) 100 mg STK-MED ONCE PO 02/11/21 18:18 02/11/21 18:18 DC Morphine Sulfate (Morphine Sulfate) 2 mg STK-MED ONCE .ROUTE 02/11/21 20:08 02/11/21 20:08 DC Lorazepam (Ativan) 2 mg STK-MED ONCE .ROUTE 02/11/21 20:36 02/11/21 20:36 DC Lorazepam (Ativan) 1 mg STAT STAT IV 02/11/21 20:50 02/11/21 20:51 DC 02/11/21 20:50 Hydromorphone HCl (Dilaudid) 0.5 mg Q4H PRN IV PAIN 7 - 10 02/11/21 22:00 03/13/21 21:59 02/13/21 08:07 Ceftriaxone Sodium 1000 mg/ Sodium Chloride 100 ml @ 100 mls/hr Q24HRS IV 02/12/21 00:00 03/14/21 00:00 02/12/21 23:13 Azithromycin (Zithromax) 500 mg OT ONCE PO 02/12/21 00:00 02/12/21 00:01 DC 02/12/21 00:14 Sodium Chloride 100 ml @ ud STK-MED ONCE IV 02/12/21 00:01 02/12/21 00:01 DC Ceftriaxone Sodium (Rocephin) 1,000 mg STK-MED ONCE .ROUTE 02/12/21 00:01 02/12/21 00:01 DC Azithromycin (Zithromax) 250 mg STK-MED ONCE .ROUTE 02/12/21 00:01 02/12/21 00:01 DC Azithromycin (Zithromax) 250 mg STK-MED ONCE .ROUTE 02/12/21 00:08 02/12/21 00:08 DC Tramadol HCl (Ultram) 50 mg Q6 PRN PO PAIN 4 - 6 02/12/21 01:30 03/14/21 01:29 02/12/21 10:41 Morphine Sulfate (Morphine Sulfate) 2 mg Q4H PRN IV PAIN 7 - 10 02/12/21 01:30 03/14/21 01:29 Acetaminophen (Tylenol) 650 mg Q6 PRN PO PAIN 1 - 3 02/12/21 01:30 02/12/21 09:21 DC Ondansetron HCl (Zofran) 4 mg Q6 PRN IV NAUSEA / VOMITING 02/12/21 01:30 03/14/21 01:29 Acetaminophen (Tylenol) 325 mg Q4H PRN PO PAIN 1 - 3 02/12/21 08:30 03/14/21 08:29 Furosemide (Lasix) 20 mg STAT STAT IV 02/12/21 08:24 02/12/21 09:27 DC Furosemide (Lasix) 40 mg STAT STAT IV 02/12/21 09:24 02/12/21 09:41 DC 02/12/21 09:43 Heparin Sodium (Porcine) (Heparin) 5,000 unit Q8HR SQ 02/12/21 14:00 03/14/21 13:59 02/13/21 05:17 Pantoprazole Sodium (Protonix) 40 mg DAILY PO 02/13/21 09:00 03/15/21 08:59 02/13/21 08:34 Levofloxacin/ Dextrose 100 ml @ 100 mls/hr DAILY IV 02/13/21 09:00 03/15/21 08:59 02/13/21 08:35 Furosemide (Lasix) 40 mg DAILY IV 02/13/21 09:00 03/15/21 08:59 02/13/21 08:34 Carvedilol (Coreg) 3.125 mg BID PO 02/12/21 21:00 03/14/21 20:59 02/13/21 08:34 Lisinopril (Zestril) 5 mg DAILY PO 02/13/21 09:00 03/15/21 08:59 02/13/21 08:34 Nicotine (Nicotine 21mg Patch) 1 each DAILY TD 02/12/21 21:00 03/14/21 20:59 02/13/21 08:35 Alprazolam (Xanax) 0.5 mg Q8HR PRN PO ANXIETY 02/12/21 21:30 03/14/21 21:29 02/12/21 21:27 Assessment/Plan Assessment/Plan Problems: (1) Acute CHF ICD Code: I50.9 - Heart failure, unspecified SNOMED: 17566150 (2) Dilated cardiomyopathy ICD Code: I42.0 - Dilated cardiomyopathy SNOMED: 691771106 (3) Pleural effusion Status: Acute ICD Code: J90 - Pleural effusion, not elsewhere classified SNOMED: 12721546 (4) History of breast cancer ICD Code: Z85.3 - Personal history of malignant neoplasm of breast SNOMED: 913995978 Plan 50-year-old female with past medical history of bilateral frontal breast cancer status post mastectomies complaining of 3 weeks of worsening cough with associated chest pain. Patient states that the chest pain has been severe and is worse with big breaths and coughing causing her to have to splint her b reathing. She also endorses some yellow coverage sputum production with a cough. She denies fevers but endorses chills.She has had no known sick contacts. She was told had previous clinic in the past that she might have a lung cancer but she is not had any additional follow-up on this. Work-up in the emergency room including CT of the chest was negative for pulmonary embolism but it did show moderate bilateral pleural effusions. proBNP was more than 17,000. In the emergency room patient empirically was given IV antibiotics for suspected infection. Patient was admitted for further management.2D echo showed dilated cardiomyopathy with a EF 15-20%. Research Clerk consulted. Plan Continue IV diuresis. Patient started on RUDY inhibitor and beta-stephen. Patient for heart cath today. Patient will need a LifeVest. We will discontinue IV antibiotic. Continue with diuresis. Appreciate cardiology input. GI and DVT prophylaxis. BARBARA GO MD Feb 13, 2021 10:52
[2021-02-13] MEDS ORDERED: VERSED ONE (11:30)
[2021-02-13] MEDS ORDERED: XYLOCAINE ONE (11:30)
[2021-02-13] MEDS ORDERED: SUBLIMAZE ONE ×2 (11:30→13:52)
--- NOTE | 2021-02-13 12:55 | NUR ---
LOADING INSPECTOR SBAR REPORT AND SURGICAL CHECKLIST GIVEN TO MARIBEL RODRIGUEZ FROM LOADING INSPECTOR. NO S/S OF ACUTE DISTRESS NOTED. PT WHEELED OFF OF UNIT VIA BED TO LOADING INSPECTOR BY MARIBEL RODRIGUEZ FROM [facility] INSPECTOR. CARE OF PT RELINQUISHED AT THIS TIME.
[2021-02-13] MEDS ORDERED: NS 1000ML 1,000 ML ONE (13:15)
[2021-02-13] MEDS ORDERED: HEPARIN ONE (13:34)
[2021-02-13] MEDS ORDERED: ATIVAN ONE (13:50)
--- NOTE | 2021-02-13 14:30 | NUR ---
ARRIVAL PT ARRIVED BACK FROM [facility]. REPORT RECEIVED FROM MARIBEL RODRIGUEZ FROM [facility]. CARE OF PT RESUMED.
[2021-02-13] MEDS: XANAX PO PRN (16:46)
[2021-02-13] MEDS: ULTRAM PO PRN (16:46)
--- NOTE | 2021-02-13 19:06 | [facility] ---
DATE OF SERVICE: 02/13/2021 DICTATOR NAME: MELANY REMY DO INDICATION: Cardiomyopathy. This is a 50-year-old female who presented to the hospital with acute decompensated heart failure. She was successfully treated. 2D echo shows LVEF of 15-20%. She was then set up for cardiac catheterization to rule out obstructive CAD after informed consents were obtained. PROCEDURES PERFORMED: 1. Selective coronary angiography. 2. Left ventriculography. 3. Hemostasis established using a 6-Romanian Angioseal. PROCEDURAL DETAILS: Access was obtained, using a 4-Romanian micropuncture kit to cannulate the right common femoral artery. The 4-Romanian sheath was then upsized to a 6-Romanian regular short sheath. Diagnostic angiography was carried out using a Cornad left catheter to engage the left main. The left main was noted to be angiographically normal. It bifurcates into left anterior descending artery and the left circumflex artery. The left anterior descending artery is noted to have mild luminal irregularities. It roams in the interventricular groove to the apex to form a type 2 LAD. It gives off 4 diagonal branches that are noted to have mild luminal irregularities. The left circumflex artery is noted to be codominant and with mild luminal irregularities. It gives off 2 obtuse marginal branches that are noted to have mild luminal irregularities. The Conrad left catheter was then exchanged for a Conrad right catheter, which was used to engage the RCA. RCA angiography revealed a dominant RCA with mild luminal irregularities. The RCA bifurcates distally to an RPL and RPDA branches; both the RPL and RPDA branches are noted to have mild luminal irregularities. The Conrad right catheter was then exchanged for a pigtail catheter which was used to cross the aortic valve into the left ventricle. Left ventriculography was performed. LVEF was noted to be 20%. LVEDP was noted to be 28. Upon pullback of the pigtail catheter, there was no gradient across the aortic valve. The pigtail catheter was then taken out and hemostasis was established using a 6-Romanian Angioseal. The patient left the slab inspector in stable condition. There were no complications. IMPRESSION: 1. Non-ischemic cardiomyopathy. 2. Non-obstructive coronary artery disease. 3. Selective coronary angiography. 4. Left ventriculography. 5. LVEF of 20%. 6. LVEDP of 28. 7. Hemostasis established using a 6-Romanian Angioseal. RECOMMENDATIONS: No coronary interventions is necessary at this time. Optimization of cardiac meds given severe cardiomyopathy is recommended. The patient would certainly benefit from a wearable cardioverter device for primary prevention of sudden cardiac . She has been instructed to follow up with me in the clinic in 2-3 weeks upon discharge. No further cardiac work up is necessary at this time. Amada GILMORE D.O. DR: AVA TID: [id number] RECEIPT: [id number]
[2021-02-14] MEDS: ULTRAM PO PRN ×3 (01:57→19:37)
[2021-02-14] MEDS: XANAX PO PRN (04:14)
[2021-02-14 04:23] VITALS: BP 116/74
[2021-02-14 05:34] LABS: BASOPHIL # 0.1 10^3/uL (0.0-0.1); EOSINOPHIL # 0.2 10^3/uL (0.0-0.2); EOSINOPHIL % 4.2 % (0.0-5.0); LYMPHOCYTES # 1.71 10^3/uL1 (1.0-4.8); LYMPHOCYTES % 34.3 % (24.0-44.0); MEAN CORP HGB 30.5 pg (26-34); MONOCYTES # 0.3 10^3/uL (0.3-0.8); MONOCYTES % 5.6 % (5.0-12.0); NEUTROPHIL # 2.7 10^3/uL (1.8-7.7); NEUTROPHILS % 54.9 % (41.0-85.0); PLATELET COUNT 300 10^3/uL (150-400); RED CELL DISTRIBUTION WIDTH 14.5 % (11.5-14.5)
[2021-02-14] MEDS: HEPARIN SQ SCH ×3 (05:38→22:01)
[2021-02-14 05:42] LABS: CALCIUM 8.4 mg/dL (8.4-10.5); CARBON DIOXIDE 28.2 mmol/L (20.0-32)
[2021-02-14 07:46] VITALS: BP 104/73
[2021-02-14] MEDS: ZESTRIL PO SCH (08:25)
[2021-02-14] MEDS: PROTONIX PO SCH (08:25)
[2021-02-14] MEDS: COREG PO SCH ×2 (08:25→22:01)
[2021-02-14] MEDS: NICOTINE 21MG PATCH TD SCH (08:26)
[2021-02-14] MEDS: LASIX IV SCH (08:26)
[2021-02-14] MEDS ORDERED: MORPHINE SULFATE IV PRN (10:30)
--- NOTE | 2021-02-14 11:31 | PRM.PN ---
PROGRESS NOTE SUBJECTIVE Increased weakness, effort dyspnea, tolerating p.o. intake well, had bowel movement today, Lower back pain OBJECTIVE Vital Signs Date Time Temp Pulse Resp B/P (MAP) Pulse Ox O2 Delivery O2 Flow Rate FiO2 02/14/21 08:26 104/73 02/14/21 08:25 104/73 02/14/21 08:25 110 104/73 02/14/21 07:46 98.2 110 20 104/73 (83) 93 Room Air General: Patient is in mild distress secondary to low back pain, No respiratory distress,Saturating about 90% on room air, Severely emaciated muscle atrophy noted HEENT: Anicteric sclerae mucous membrane is moist neck supple no JVD no carotid bruit no thyromegaly Lungs: Prolonged expiration no wheezes heard have scattered rales present Heart :S1-S2 heard no murmur gallop appreciated Abdomen: Not distended no guarding no rigidity bowel sounds present no masses felt Extremities: Moves all 4 limbs no edema no calf tenderness GROUP CIO: Cranial nerves grossly intact muscle power 5/5 in all 4 limbs Laboratory Tests Test 02/11/21 18:20 02/11/21 20:30 02/12/21 08:43 02/12/21 12:05 White Blood Count 7.2 10^3/uL (4.5-11.0) 5.8 10^3/uL (4.5-11.0) Red Blood Count 3.84 10^6/uL (4.00-5.20) 3.84 10^6/uL (4.00-5.20) Hemoglobin 11.8 g/dL (12.0-15.0) 11.9 g/dL (12.0-15.0) Hematocrit 37.0 % (36.0-46.0) 37.9 % (36.0-46.0) Mean Corpuscular Volume 96.4 fL (78-100) 98.7 fL (78-100) Mean Corpuscular Hemoglobin 30.7 pg (26-34) 31.0 pg (26-34) Mean Corpuscular Hemoglobin Concent 31.9 g/dL (33-36.5) 31.4 g/dL (33-36.5) Red Cell Distribution Width 14.7 % (11.5-14.5) 14.9 % (11.5-14.5) Platelet Count 321 10^3/uL (150-400) 278 10^3/uL (150-400) Mean Platelet Volume 10.2 fL (7.8-11.0) 10.2 fL (7.8-11.0) Neutrophils (%) (Auto) 74.5 % (41.0-85.0) 71.3 % (41.0-85.0) Lymphocytes (%) (Auto) 18.0 % (24.0-44.0) 21.1 % (24.0-44.0) Monocytes (%) (Auto) 4.6 % (5.0-12.0) 4.5 % (5.0-12.0) Neutrophils # (Auto) 5.4 10^3/uL (1.8-7.7) 4.2 10^3/uL (1.8-7.7) Lymphocytes # (Auto) 1.30 10^3/uL1 (1.0-4.8) 1.23 10^3/uL1 (1.0-4.8) Monocytes # (Auto) 0.3 10^3/uL (0.3-0.8) 0.3 10^3/uL (0.3-0.8) Absolute Immature Granulocyte (auto 0.02 10^3 u/L (0-2) 0.01 10^3 u/L (0-2) Absolute Eosinophils (auto) 0.1 10^3/uL (0.0-0.2) 0.2 10^3/uL (0.0-0.2) Immature Granulocytes % 0.30 % (0.00-0.50) 0.20 % (0.00-0.50) Eosinophils % 1.9 % (0.0-5.0) 2.6 % (0.0-5.0) Basophils % 1.0 % (0.0-0.2) 0.3 % (0.0-0.2) Basophils # 0.1 10^3/uL (0.0-0.1) 0.0 10^3/uL (0.0-0.1) Sodium Level 142 mmol/L (132-145) 142 mmol/L (132-145) Potassium Level 4.4 mmol/L (3.6-5.2) 4.9 mmol/L (3.6-5.2) Chloride Level 107.0 mmol/L (96-109) 107.0 mmol/L (96-109) Carbon Dioxide Level 24.2 mmol/L (20.0-32) 25.8 mmol/L (20.0-32) Anion Gap 15.2 14.1 Blood Urea Nitrogen 19 mg/dL (7-18) 18 mg/dL (7-18) Creatinine 1.36 mg/dL (0.59-1.40) 1.18 mg/dL (0.59-1.40) Estimated GFR () 50.2 (>/=60) 59.2 (>/=60) Est GFR (CKD-EPI)(Non-Afr [place]) 41.5 (>/=60) 48.9 (>/=60) BUN/Creatinine Ratio 13.0 15.0 Glucose Level 123 mg/dL (70-110) 91 mg/dL (70-110) Calcium Level 8.8 mg/dL (8.4-10.5) 8.9 mg/dL (8.4-10.5) Total Bilirubin 0.7 mg/dL (0.2-1.0) Aspartate Amino Transf (AST/SGOT) 29 U/L (0-35) Alanine Aminotransferase (ALT/SGPT) 72 U/L (12-78) Alkaline Phosphatase 118 U/L (50-136) Pro-B-Type Natriuretic Peptide 13712 pg/mL (0-125) Total Protein 6.1 g/dL (6.4-8.2) Albumin 3.3 g/dL (3.4-5.0) Globulin 2.8 Albumin/Globulin Ratio 1.178 Urine Collection Type UNKNOWN Urine Color YELLOW Urine Appearance CLEAR Urine Bilirubin NEGATIVE (NEGATIVE) Urine Ketones NEGATIVE (NEGATIVE) Urine Specific [place] >=1.030 (1.005-1.030) Urine pH 5.5 (4.5-8.0) Urine Protein 30 mg/dL (NEGATIVE) Urine Urobilinogen 0.2 E.U./dL (0.2) Urine Nitrate NEGATIVE (NEGATIVE) Urine Leukocyte Esterase NEGATIVE (NEGATIVE) Urine Glucose (Auto)(UA) NEGATIVE (NEGATIVE) Urine Blood MODERATE (NEGATIVE) Urine RBC 5-10 RBC/HPF (NONE SEEN) Urine WBC 2-5 WBC/HPF (0-2) Urine Squamous Epithelial Cells MODERATE #/HPF (FEW) Urine Calcium Oxalate Crystals FEW (NONE SEEN) Urine Bacteria FEW (NONE SEEN) Urine Other MUCOUS 1+ #/HPF Procalcitonin < 0.05 ng/mL (0.05-0.5) Thyroid Stimulating Hormone (TSH) 3.531 mIU/mL (0.358-3.740) Troponin I < 0.02 ng/mL (0.00-0.05) Test 02/12/21 16:04 02/13/21 05:25 02/14/21 05:25 Troponin I < 0.02 ng/mL (0.00-0.05) White Blood Count 3.3 10^3/uL (4.5-11.0) 5.0 10^3/uL (4.5-11.0) Red Blood Count 3.59 10^6/uL (4.00-5.20) 4.07 10^6/uL (4.00-5.20) Hemoglobin 11.0 g/dL (12.0-15.0) 12.4 g/dL (12.0-15.0) Hematocrit 34.1 % (36.0-46.0) 38.3 % (36.0-46.0) Mean Corpuscular Volume 95.0 fL (78-100) 94.1 fL (78-100) Mean Corpuscular Hemoglobin 30.6 pg (26-34) 30.5 pg (26-34) Mean Corpuscular Hemoglobin Concent 32.3 g/dL (33-36.5) 32.4 g/dL (33-36.5) Red Cell Distribution Width 14.4 % (11.5-14.5) 14.5 % (11.5-14.5) Platelet Count 250 10^3/uL (150-400) 300 10^3/uL (150-400) Mean Platelet Volume 10.6 fL (7.8-11.0) 10.4 fL (7.8-11.0) Neutrophils (%) (Auto) 55.8 % (41.0-85.0) 54.9 % (41.0-85.0) Lymphocytes (%) (Auto) 32.0 % (24.0-44.0) 34.3 % (24.0-44.0) Monocytes (%) (Auto) 5.8 % (5.0-12.0) 5.6 % (5.0-12.0) Neutrophils # (Auto) 1.8 10^3/uL (1.8-7.7) 2.7 10^3/uL (1.8-7.7) Lymphocytes # (Auto) 1.04 10^3/uL1 (1.0-4.8) 1.71 10^3/uL1 (1.0-4.8) Monocytes # (Auto) 0.2 10^3/uL (0.3-0.8) 0.3 10^3/uL (0.3-0.8) Absolute Immature Granulocyte (auto 0.01 10^3 u/L (0-2) 0 10^3 u/L (0-2) Absolute Eosinophils (auto) 0.2 10^3/uL (0.0-0.2) 0.2 10^3/uL (0.0-0.2) Immature Granulocytes % 0.30 % (0.00-0.50) 0.00 % (0.00-0.50) Eosinophils % 4.9 % (0.0-5.0) 4.2 % (0.0-5.0) Basophils % 1.5 % (0.0-0.2) 1.0 % (0.0-0.2) Basophils # 0.1 10^3/uL (0.0-0.1) 0.1 10^3/uL (0.0-0.1) Sodium Level 138 mmol/L (132-145) 138 mmol/L (132-145) Potassium Level 3.7 mmol/L (3.6-5.2) 3.7 mmol/L (3.6-5.2) Chloride Level 101.0 mmol/L (96-109) 102.0 mmol/L (96-109) Carbon Dioxide Level 26.9 mmol/L (20.0-32) 28.2 mmol/L (20.0-32) Anion Gap 13.8 11.5 Blood Urea Nitrogen 17 mg/dL (7-18) 15 mg/dL (7-18) Creatinine 1.10 mg/dL (0.59-1.40) 1.11 mg/dL (0.59-1.40) Estimated GFR () 64.1 (>/=60) 63.5 (>/=60) Est GFR (CKD-EPI)(Non-Afr [place]) 53.0 (>/=60) 52.5 (>/=60) BUN/Creatinine Ratio 15.0 13.0 Glucose Level 118 mg/dL (70-110) 85 mg/dL (70-110) Calcium Level 8.4 mg/dL (8.4-10.5) 8.4 mg/dL (8.4-10.5) Total Bilirubin 0.4 mg/dL (0.2-1.0) Aspartate Amino Transf (AST/SGOT) 30 U/L (0-35) Alanine Aminotransferase (ALT/SGPT) 68 U/L (12-78) Alkaline Phosphatase 125 U/L (50-136) Total Protein 5.9 g/dL (6.4-8.2) Albumin 2.9 g/dL (3.4-5.0) Globulin 3.0 Albumin/Globulin Ratio 0.966 Triglycerides Level 87 mg/dL (20-170) Cholesterol Level 107 mg/dL (120-240) LDL Cholesterol, Calculated 50.6 VLDL Cholesterol, Calculated 17.4 HDL Cholesterol 39 mg/dL (32-96) Cholesterol Ratio (LDL/HDL) 1.2 Cholesterol/HDL Ratio [id number] Microbiology Date/Time Source Procedure Growth Status 02/11/21 20:30 Urine,Void Urine Culture - Final Complete Current Medications Medications (Trade) Dose Ordered Sig/Damian Route PRN Reason Start Time Stop Time Status Last Admin Dose Admin Benzonatate (Tessalon Perle) 100 mg STAT STAT PO 02/11/21 18:13 02/11/21 18:15 DC 02/11/21 18:20 Benzonatate (Tessalon Perle) 100 mg STK-MED ONCE PO 02/11/21 18:18 02/11/21 18:18 DC Morphine Sulfate (Morphine Sulfate) 2 mg STK-MED ONCE .ROUTE 02/11/21 20:08 02/11/21 20:08 DC Lorazepam (Ativan) 2 mg STK-MED ONCE .ROUTE 02/11/21 20:36 02/11/21 20:36 DC Lorazepam (Ativan) 1 mg STAT STAT IV 02/11/21 20:50 02/11/21 20:51 DC 02/11/21 20:50 Hydromorphone HCl (Dilaudid) 0.5 mg Q4H PRN IV PAIN 7 - 10 02/11/21 22:00 03/13/21 21:59 02/13/21 08:07 Ceftriaxone Sodium 1000 mg/ Sodium Chloride 100 ml @ 100 mls/hr Q24HRS IV 02/12/21 00:00 02/13/21 10:53 DC 02/12/21 23:13 Azithromycin (Zithromax) 500 mg OT ONCE PO 02/12/21 00:00 02/12/21 00:01 DC 02/12/21 00:14 Sodium Chloride 100 ml @ ud STK-MED ONCE IV 02/12/21 00:01 02/12/21 00:01 DC Ceftriaxone Sodium (Rocephin) 1,000 mg STK-MED ONCE .ROUTE 02/12/21 00:01 02/12/21 00:01 DC Azithromycin (Zithromax) 250 mg STK-MED ONCE .ROUTE 02/12/21 00:01 02/12/21 00:01 DC Azithromycin (Zithromax) 250 mg STK-MED ONCE .ROUTE 02/12/21 00:08 02/12/21 00:08 DC Tramadol HCl (Ultram) 50 mg Q6 PRN PO PAIN 4 - 6 02/12/21 01:30 03/14/21 01:29 02/14/21 08:25 Morphine Sulfate (Morphine Sulfate) 2 mg Q4H PRN IV PAIN 7 - 10 02/12/21 01:30 02/14/21 10:30 DC Acetaminophen (Tylenol) 650 mg Q6 PRN PO PAIN 1 - 3 02/12/21 01:30 02/12/21 09:21 DC Ondansetron HCl (Zofran) 4 mg Q6 PRN IV NAUSEA / VOMITING 02/12/21 01:30 03/14/21 01:29 Acetaminophen (Tylenol) 325 mg Q4H PRN PO PAIN 1 - 3 02/12/21 08:30 03/14/21 08:29 Furosemide (Lasix) 20 mg STAT STAT IV 02/12/21 08:24 02/12/21 09:27 DC Furosemide (Lasix) 40 mg STAT STAT IV 02/12/21 09:24 02/12/21 09:41 DC 02/12/21 09:43 Heparin Sodium (Porcine) (Heparin) 5,000 unit Q8HR SQ 02/12/21 14:00 03/14/21 13:59 02/14/21 05:38 Pantoprazole Sodium (Protonix) 40 mg DAILY PO 02/13/21 09:00 03/15/21 08:59 02/14/21 08:25 Levofloxacin/ Dextrose 100 ml @ 100 mls/hr DAILY IV 02/13/21 09:00 02/13/21 10:53 DC 02/13/21 08:35 Furosemide (Lasix) 40 mg DAILY IV 02/13/21 09:00 03/15/21 08:59 02/14/21 08:26 Carvedilol (Coreg) 3.125 mg BID PO 02/12/21 21:00 03/14/21 20:59 02/14/21 08:25 Lisinopril (Zestril) 5 mg DAILY PO 02/13/21 09:00 03/15/21 08:59 02/14/21 08:25 Nicotine (Nicotine 21mg Patch) 1 each DAILY TD 02/12/21 21:00 03/14/21 20:59 02/14/21 08:26 Alprazolam (Xanax) 0.5 mg Q8HR PRN PO ANXIETY 02/12/21 21:30 03/14/21 21:29 02/14/21 04:14 Heparin Sodium/ Sodium Chloride 1,500 ml @ ud STK-MED ONCE IV 02/13/21 11:29 02/13/21 11:30 DC Fentanyl Citrate (Sublimaze) 50 mcg STK-MED ONCE .ROUTE 02/13/21 11:30 02/13/21 11:30 DC Lidocaine HCl (Xylocaine) 20 mg STK-MED ONCE .ROUTE 02/13/21 11:30 02/13/21 11:31 DC Sodium Chloride 1,000 ml @ ud STK-MED ONCE .ROUTE 02/13/21 13:15 02/13/21 13:15 DC Heparin Sodium (Porcine) (Heparin) 5,000 unit STK-MED ONCE .ROUTE 02/13/21 13:34 6/5/21 13:35 DC Lorazepam (Ativan) 2 mg STK-MED ONCE .ROUTE 02/13/21 13:50 02/13/21 13:51 DC Fentanyl Citrate (Sublimaze) 50 mcg STK-MED ONCE .ROUTE 02/13/21 13:52 02/13/21 13:53 DC Morphine Sulfate (Morphine Sulfate) 2 mg Q4H PRN IV PAIN 7 - 10 02/14/21 10:30 03/14/21 01:29 ASSESSMENT 1.Dilated cardiomyopathy With severe mitral tricuspid and pulmonary valve Regurgitation 2. Acute CHF exacerbation with chronic systolic congestive heart failure where with ejection fraction of 15 - 20% 3.History of breast cancer status post chemotherapy 4.Bilateral pleural effusion as per CT scan patient is not in respiratory distress we will continue to monitor 5. Tobacco use disorder in the past PLAN Continue current management, if blood pressure permits we will add Aldactone and consider adding Entresto and discontinue RUDY,We will add lidocaine patch for lower lumbar region to control the pain Awaiting [facility] arrangement for discharge planning SAHRA MOY MD Feb 14, 2021 11:31
[2021-02-14 11:35] VITALS: BP 98/70
[2021-02-14] MEDS ORDERED: LIDODERM TP ONE (13:18)
[2021-02-14 16:49] VITALS: BP 99/68
[2021-02-14 20:04] VITALS: BP 103/65
[2021-02-15] VITALS (7 sets, daily range): BP systolic 98–115; BP diastolic 64–69
[2021-02-15] MEDS: ULTRAM PO PRN ×2 (03:31→10:49)
[2021-02-15] MEDS: HEPARIN SQ SCH ×2 (05:43→14:00)
[2021-02-15] MEDS ORDERED: LIDODERM TP SCH (09:00)
[2021-02-15] MEDS: COREG PO SCH (09:00)
[2021-02-15] MEDS: ZESTRIL PO SCH (09:00)
[2021-02-15] MEDS: LASIX IV SCH (09:14)
[2021-02-15] MEDS: PROTONIX PO SCH (09:15)
[2021-02-15] MEDS: NICOTINE 21MG PATCH TD SCH (09:15)
[2021-02-15] MEDS: XANAX PO PRN (10:49)
[2021-02-15] MEDS ORDERED: LIDO700A19 TP (11:03)
[2021-02-15] MEDS ORDERED: TRAM50TA PO (11:03)
[2021-02-15] MEDS ORDERED: ACET325T12 PO (11:03)
[2021-02-15] MEDS ORDERED: FURO-81 PO (11:03)
[2021-02-15] MEDS ORDERED: CARV3.122 PO (11:03)
[2021-02-15] MEDS ORDERED: LISI-593 PO (11:03)
[2021-02-15] MEDS ORDERED: SPIR25TA PO (11:03)
--- NOTE | 2021-02-15 11:12 | PRM.DC ---
Subjective Subjective Date of Discharge: Feb 15, 2021 Time of Request to Discharge: 11:04 Subjective Feeling better back pain controlled tolerating p.o. intake well had bowel movement today Patient History: Patient reports no known family medical history. Exam Vital Signs Vital Signs Date Time Temp Pulse Resp B/P (MAP) Pulse Ox O2 Delivery O2 Flow Rate FiO2 02/15/21 10:04 Room Air 02/15/21 10:00 97.0 103 17 104/69 (81) 93 02/12/21 04:22 2.00 General Appearance: Alert, Oriented X3, Cooperative, No acute distress HEENT: Atraumatic, PERRLA, EOMI, Mucous membr. moist/pink Respiratory: Other (Bilateral few scattered Rales present prolonged expiration noted no wheezes heard) Cardiovascular: Regular rate, Normal S1, Normal S2, Gallops Abdominal: Normal bowel sounds, Soft, No tenderness, No hepatospenomegaly Extremities: No clubbing, No cyanosis, No edema Skin: No rash, No breakdown, No lesions Neuro: Normal gait, Normal speech, Strength at 5/5 X4 ext, Normal tone Psych/Mental Status: Mental status NL, Mood NL VTE VTE Risk Total Score: 1 VTE Risk Score VTE Risk: Score 0-1 = Low Risk (Aggressive mobilization; early ambulation; no VTE prophylaxis required) Score 2: Moderate Risk (Intermittent/Pneumatic Compression Device OR Lovenox/Heparin/Coumadin) Score 3-4: High Risk (Intermittent/Pneumatic Compression Device AND Lovenox/Heparin/Coumadin) Score > or =5: Highest Risk (Intermittent/Pneumatic Compression Device AND Lovenox/Heparin/Coumadin) Antico:Hep/LMWH/Coum/Xarelto: Yes Mechanical device ordered: Yes Objective Vitals and I/O Vital Sign - Last 24 Hours 02/14/21 02/14/21 02/14/21 02/14/21 11:35 15:12 16:12 16:49 Temp 97.9 97.9 Pulse 100 108 Resp 20 18 B/P (MAP) 98/70 (79) 99/68 (78) Pulse Ox 93 100 O2 Delivery Room Air Room Air Room Air Room Air 02/14/21 02/14/21 02/14/21 02/15/21 20:04 21:00 22:01 00:35 Temp 98.3 98.2 Pulse 104 104 106 Resp 18 18 B/P (MAP) 103/65 (78) 103/65 100/64 (76) Pulse Ox 100 100 O2 Delivery Room Air Room Air Room Air 02/15/21 02/15/21 02/15/21 02/15/21 03:50 09:00 09:00 09:14 Temp 97.9 Pulse 107 107 Resp 18 B/P (MAP) 115/64 (81) 115/64 115/64 115/64 Pulse Ox 93 O2 Delivery Room Air 02/15/21 02/15/21 10:00 10:04 Temp 97.0 Pulse 103 Resp 17 B/P (MAP) 104/69 (81) Pulse Ox 93 O2 Delivery Room Air Room Air Intake and Output 02/15/21 07:00 Intake Total 744 ml Output Total 500 ml Balance 244 ml General: Alert, Oriented X3, moderate distress HEENT: Atraumatic, PERRLA Lungs: Other (Diminished air entry both bases with dullness to percussion.) Heart: Regular rate, Normal S1, Normal S2 Abdomen: Normal bowel sounds, Soft, No tenderness Extremities: No clubbing, No cyanosis Neuro: Normal gait, Normal speech, Normal tone Psych/Mental Status: Mental status NL, Other (Anxious) Procedures Echocardiogram: Left ventricular systolic function is severely decreased. LVEF is 15-20%. Severe diastolic dysfunction is present (restrictive filling). There is global hypokinesis of the left ventricle. Left ventricle is severely dilated. Right ventricle is severely dilated. Left atrium is severely dilated. Right atrium is severely dilated. Moderate to severe aortic regurgitation Severe mitral regurgitation. Severe tricuspid regurgitation. Severe pulmonic regurgitation. Severe pulmonary hypertension. IVC is dilated. Coronary angiogram: This is a 50-year-old female who presented to the hospital with acute decompensated heart failure. She was successfully treated. 2D echo shows LVEF of 15-20%. She was then set up for cardiac catheterization to rule out obstructive CAD after informed consents were obtained. PROCEDURES PERFORMED: 1. Selective coronary angiography. 2. Left ventriculography. 3. Hemostasis established using a 6-[place] Angioseal. PROCEDURAL DETAILS: Access was obtained, using a 4-[place] micropuncture kit to cannulate the right common femoral artery. The 4-[place]hi sheath was then upsized to a 6-[place]hi regular short sheath. Diagnostic angiography was carried out using a Conrad left catheter to engage the left main. The left main was noted to be angiographically normal. It bifurcates into left anterior descending artery and the left circumflex artery. The left anterior descending artery is noted to have mild luminal irregularities. It roams in the interventricular groove to the apex to form a type 2 LAD. It gives off 4 diagonal branches that are noted to have mild luminal irregularities. The left circumflex artery is noted to be codominant and with mild luminal irregularities. It gives off 2 obtuse marginal branches that are noted to have mild luminal irregularities. The Conrad left catheter was then exchanged for a Conrad right catheter, which was used to engage the RCA. RCA angiography revealed a dominant RCA with mild luminal irregularities. The RCA bifurcates distally to an RPL and RPDA branches; both the RPL and RPDA branches are noted to have mild luminal irregularities. The Conrad right catheter was then exchanged for a pigtail catheter which was used to cross the aortic valve into the left ventricle. Left ventriculography was performed. LVEF was noted to be 20%. LVEDP was noted to be 28. Upon pullback of the pigtail catheter, there was no gradient across the aortic valve. The pigtail catheter was then taken out and hemostasis was established using a 6-[place] Angioseal. 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 There were no complications. IMPRESSION: 1. Non-ischemic cardiomyopathy. 2. Non-obstructive coronary artery disease. 3. Selective coronary angiography. 4. Left ventriculography. 5. LVEF of 20%. 6. LVEDP of 28. 7. Hemostasis established using a 6-[place] Angioseal. RECOMMENDATIONS: No coronary interventions is necessary at this time. Optimization of cardiac meds given severe cardiomyopathy is recommended. The patient would certainly benefit from a wearable cardioverter device for primary prevention of sudden cardiac . She has been instructed to follow up with me in the clinic in 2-3 weeks upon discharge. No further cardiac work up is necessary at this time. Amada GILMORE D.O. : AVA DELGADO: [id number] RECEIPT: [id number] All Results(Lab/Rad) Laboratory Tests Test 6/4/21 12:05 02/12/21 16:04 02/13/21 05:25 Troponin I < 0.02 ng/mL < 0.02 ng/mL White Blood Count 3.3 10^3/uL Red Blood Count 3.59 10^6/uL Hemoglobin 11.0 g/dL Hematocrit 34.1 % Mean Corpuscular Volume 95.0 fL Mean Corpuscular Hemoglobin 30.6 pg Mean Corpuscular Hemoglobin Concent 32.3 g/dL Red Cell Distribution Width 14.4 % Platelet Count 250 10^3/uL Mean Platelet Volume 10.6 fL Neutrophils (%) (Auto) 55.8 % Lymphocytes (%) (Auto) 32.0 % Monocytes (%) (Auto) 5.8 % Neutrophils # (Auto) 1.8 10^3/uL Lymphocytes # (Auto) 1.04 10^3/uL1 Monocytes # (Auto) 0.2 10^3/uL Absolute Immature Granulocyte (auto 0.01 10^3 u/L Absolute Eosinophils (auto) 0.2 10^3/uL Immature Granulocytes % 0.30 % Eosinophils % 4.9 % Basophils % 1.5 % Basophils # 0.1 10^3/uL Sodium Level 138 mmol/L Potassium Level 3.7 mmol/L Chloride Level 101.0 mmol/L Carbon Dioxide Level 26.9 mmol/L Anion Gap 13.8 Blood Urea Nitrogen 17 mg/dL Creatinine 1.10 mg/dL Estimated GFR () 64.1 Est GFR (CKD-EPI)(Non-Afr [place]) 53.0 BUN/Creatinine Ratio 15.0 Glucose Level 118 mg/dL Calcium Level 8.4 mg/dL Total Bilirubin 0.4 mg/dL Aspartate Amino Transf (AST/SGOT) 30 U/L Alanine Aminotransferase (ALT/SGPT) 68 U/L Alkaline Phosphatase 125 U/L Total Protein 5.9 g/dL Albumin 2.9 g/dL Globulin 3.0 Albumin/Globulin Ratio 0.966 Triglycerides Level 87 mg/dL Cholesterol Level 107 mg/dL LDL Cholesterol, Calculated 50.6 VLDL Cholesterol, Calculated 17.4 HDL Cholesterol 39 mg/dL Cholesterol Ratio (LDL/HDL) 1.2 Cholesterol/HDL Ratio [id number] Current Medications Medications (Trade) Dose Ordered Sig/Damian Route PRN Reason Start Time Stop Time Status Last Admin Dose Admin Benzonatate (Tessalon Perle) 100 mg STAT STAT PO 6/3/21 18:13 02/11/21 18:15 DC 02/11/21 18:20 Benzonatate (Tessalon Perle) 100 mg STK-MED ONCE PO 02/11/21 18:18 02/11/21 18:18 DC Morphine Sulfate (Morphine Sulfate) 2 mg STK-MED ONCE .ROUTE 02/11/21 20:08 02/11/21 20:08 DC Lorazepam (Ativan) 2 mg STK-MED ONCE .ROUTE 02/11/21 20:36 02/11/21 20:36 DC Lorazepam (Ativan) 1 mg STAT STAT IV 02/11/21 20:50 02/11/21 20:51 DC 02/11/21 20:50 Hydromorphone HCl (Dilaudid) 0.5 mg Q4H PRN IV PAIN 7 - 10 02/11/21 22:00 03/13/21 21:59 02/13/21 08:07 Ceftriaxone Sodium 1000 mg/ Sodium Chloride 100 ml @ 100 mls/hr Q24HRS IV 02/12/21 00:00 03/14/21 00:00 02/12/21 23:13 Azithromycin (Zithromax) 500 mg OT ONCE PO 02/12/21 00:00 02/12/21 00:01 DC 02/12/21 00:14 Sodium Chloride 100 ml @ ud STK-MED ONCE IV 02/12/21 00:01 02/12/21 00:01 DC Ceftriaxone Sodium (Rocephin) 1,000 mg STK-MED ONCE .ROUTE 02/12/21 00:01 02/12/21 00:01 DC Azithromycin (Zithromax) 250 mg STK-MED ONCE .ROUTE 02/12/21 00:01 02/12/21 00:01 DC Azithromycin (Zithromax) 250 mg STK-MED ONCE .ROUTE 02/12/21 00:08 02/12/21 00:08 DC Tramadol HCl (Ultram) 50 mg Q6 PRN PO PAIN 4 - 6 02/12/21 01:30 03/14/21 01:29 02/12/21 10:41 Morphine Sulfate (Morphine Sulfate) 2 mg Q4H PRN IV PAIN 7 - 10 02/12/21 01:30 03/14/21 01:29 Acetaminophen (Tylenol) 650 mg Q6 PRN PO PAIN 1 - 3 02/12/21 01:30 02/12/21 09:21 DC Ondansetron HCl (Zofran) 4 mg Q6 PRN IV NAUSEA / VOMITING 02/12/21 01:30 03/14/21 01:29 Acetaminophen (Tylenol) 325 mg Q4H PRN PO PAIN 1 - 3 02/12/21 08:30 03/14/21 08:29 Furosemide (Lasix) 20 mg STAT STAT IV 02/12/21 08:24 02/12/21 09:27 DC Furosemide (Lasix) 40 mg STAT STAT IV 02/12/21 09:24 02/12/21 09:41 DC 02/12/21 09:43 Heparin Sodium (Porcine) (Heparin) 5,000 unit Q8HR SQ 02/12/21 14:00 03/14/21 13:59 02/13/21 05:17 Pantoprazole Sodium (Protonix) 40 mg DAILY PO 02/13/21 09:00 03/15/21 08:59 02/13/21 08:34 Levofloxacin/ Dextrose 100 ml @ 100 mls/hr DAILY IV 02/13/21 09:00 03/15/21 08:59 02/13/21 08:35 Furosemide (Lasix) 40 mg DAILY IV 02/13/21 09:00 03/15/21 08:59 02/13/21 08:34 Carvedilol (Coreg) 3.125 mg BID PO 02/12/21 21:00 03/14/21 20:59 02/13/21 08:34 Lisinopril (Zestril) 5 mg DAILY PO 02/13/21 09:00 03/15/21 08:59 02/13/21 08:34 Nicotine (Nicotine 21mg Patch) 1 each DAILY TD 02/12/21 21:00 03/14/21 20:59 02/13/21 08:35 Alprazolam (Xanax) 0.5 mg Q8HR PRN PO ANXIETY 02/12/21 21:30 03/14/21 21:29 02/12/21 21:27 Medication Reconciliation Scheduled Carvedilol (Carvedilol), 3.125 MG PO BID Furosemide (Lasix), 20 MG PO DAILY24 Lidocaine (Lidoderm), 2 PATCH TP DAILY Lisinopril (Lisinopril), 5 MG PO DAILY Spironolactone 25MG (Aldactone 25MG), 12.5 MG PO DAILY24 Scheduled PRN Acetaminophen (Tylenol), 325 MG PO Q4H PRN for PAIN 1 - 3 Tramadol Hcl (Tramadol Hcl), 50 MG PO Q6 PRN for PAIN 4 - 6 Plan Assessment 1. Nonischemic dilated cardiomyopathy 2. Moderate to severe valvular disease of the heart 3. Chronic systolic and diastolic congestive heart failure with acute exacerbation-Improving 4.History of breast cancer s/p chemotherapy 5. Tobacco use disorder 6. Bilateral pleural effusion clinically stable respiration not compromised, Patient on room air saturating about 90% Plan My Orders - SAHRA MOY MD Procedure Category Date Status Time Lidocaine (Lidoderm) PHA 02/15/21 In Process 09:00 Lidocaine (Lidoderm) PHA 02/14/21 Complete 13:18 Discharge DISCHARGE 02/15/21 Transmitted 10:50 Long-term prognosis is poor fire equipment inspector recommended arranging [facility] before discharge and was discussed in detail in the case management meeting and Patient Will be discharged home when cleared by fire equipment inspector SAHRA MOY MD Feb 15, 2021 11:12
--- NOTE | 2021-02-15 16:40 | NUR ---
DISCHARGE PATIENT BEING DISCHARGED HOME AT THIS TIME IN STABLE CONDITION. PATIENT DENIES ANY ADDITIONAL NEEDS AT THIS TIME. SCRIPTS CALLED INTO PHARMACY. PATIENT WAS ASSISTED DOWNSTAIRS TO PRIVATE VEHICLE. RELINQUISHED CARE FOR PATIENT AT THIS TIME.
== END 2021-02-15 16:36 | disposition home or self-care (01) | DRG 286 ==
LOC: ER 17:52 → MS 02-12 00:47 → OBSVTOIN 02-12 00:47 → INTOOBSV 02-12 00:47 → UNDOADMOB 02-12 00:47 → EDPENDDISTM 02-15 15:04
PROVIDERS: ADMIT Internal Medicine; ATTEND Internal Medicine
PROC: 4A023N7 Measurement of Cardiac Sampling and Pressure, Left Heart, Percutaneous Approach (ICD-10-PCS; principal; 2021-02-12)
PROC: B2111ZZ Fluoroscopy of Multiple Coronary Arteries using Low Osmolar Contrast (ICD-10-PCS; 2021-02-12)
PROC: B2151ZZ Fluoroscopy of Left Heart using Low Osmolar Contrast (ICD-10-PCS; 2021-02-12)
DX: I25.10 Atherosclerotic heart disease of native coronary artery without angina pectoris (principal); J18.9 Pneumonia, unspecified organism; I50.43 Acute on chronic combined systolic (congestive) and diastolic (congestive) heart failure; J91.8 Pleural effusion in other conditions classified elsewhere; F17.210 Nicotine dependence, cigarettes, uncomplicated; I42.0 Dilated cardiomyopathy; I08.3 Combined rheumatic disorders of mitral, aortic and tricuspid valves; J45.909 Unspecified asthma, uncomplicated; I27.20 Pulmonary hypertension, unspecified; Z92.21 Personal history of antineoplastic chemotherapy; Z90.710 Acquired absence of both cervix and uterus; Z90.13 Acquired absence of bilateral breasts and nipples; Z85.3 Personal history of malignant neoplasm of breast; Z82.49 Family history of ischemic heart disease and other diseases of the circulatory system; Z79.899 Other long term (current) drug therapy; Z79.82 Long term (current) use of aspirin
CPT/HCPCS: 36415; 71045; 71275; 80048; 80053; 80061; 81003; 81015; 83880; 84145; 84443; 84484; 85025; 87086; 93005; 93306; 93458; 99152; C1760; C1894; G0378; J0696; J0745; J1170; J1644; J1940; J1956; J2060; J2250; J3010; J3490; J7030; Q9965; Q9967; A9270; C1769; Q0144

== ENCOUNTER 2021-02-16 10:07 | Emergency (ER) | payer OTHER ==
[~2021-02-16] VITALS: Ht 165.1 cm; Wt 54.4 kg
[~2021-02-16 10:07] MED LIST: ACET325T12 PO; CARV3.122 PO; FURO-81 PO; LIDO700A19 TP; LISI-593 PO; SPIR25TA PO; TRAM50TA PO
--- NOTE | 2021-02-16 10:16 | NUR ---
ARRIVAL PT ARRIVED TO ED WITH C/O CHEST PRESSURE THAT STARTED AROUND 0800. PT WAS RESTING IN CHAIR WHEN PRESSURE STARTED. PT REPORTS LOW BACK PAIN/RIB PAIN FROM COUGHING. PT GIVEN NITRO EN ROUTE TO FACILITY WITH RELIEF VERBALIZED. BEDSIDE MONITORS APPLIED. VITAL SIGNS STABLE. BED IN LOW LOCKED POSITION. 20G IV PLACED TO RIGHT HAND WITH BLOOD COLLECTED AND TAKEN TO LAB.
[2021-02-16] MEDS ORDERED: MORPHINE SULFATE IV STA (10:31)
[2021-02-16 10:33] VITALS: BP 102/62
--- NOTE | 2021-02-16 10:36 | ER.PDOC ---
General Chief Complaint: Requesting Medical Care Stated Complaint: CHEST PAIN Time seen by : 10:33 Source: patient Exam Limitations: no limitations History of Present Illness Initial Comments Patient with known ischemic dilated cardiomyopathy, chronic systolic and diastolic congestive heart failure and valvular disease complaining of chest pain that started this morning. Pain was initially 8 out of 10 and is down to 5 out of 10 after 1 nitro glycerin. He is allergic to aspirin. He was discharged from hospital yesterday. Timing/Duration: 1-3 hours Severity/Quality: moderate, sharp Radiation: no radiation Activities at Onset: none Prior CP/Workup: Cardiac Cath, Echocardiography Nitro Today/Relief: 0.4 mg x 1, Mild Relief Aspirin Today: No Aspirin Today Associated Symptoms: denies symptoms Allergies: Coded Allergies: onion (Verified Allergy, Severe, Anaphylaxis Shock, 02/14/21) aspirin (Verified Allergy, Unknown, 02/11/21) Home Meds Active Scripts Furosemide (LASIX) 20 Mg Tablet, 20 MG PO DAILY24 for 30 Days Prov:SAHRA MOY MD 02/15/21 Spironolactone 25MG (ALDACTONE 25MG) 25 Mg Tablet, 12.5 MG PO DAILY24 for 30 Days, TAB Prov:SAHRA MOY MD 02/15/21 Lidocaine (Lidoderm) 5 % Adh..patch, 2 PATCH TP DAILY for 7 Days, PATCH Prov:SAHRA MOY MD 02/15/21 Tramadol Hcl (TRAMADOL HCL) 50 Mg Tablet, 50 MG PO Q6 PRN for PAIN 4 - 6 for 7 Days, TAB Prov:SAHRA MOY MD 02/15/21 Acetaminophen (TYLENOL) 325 Mg Tablet, 325 MG PO Q4H PRN for PAIN 1 - 3 for 3 Days, TAB Prov:SAHRA MOY MD 02/15/21 Lisinopril (LISINOPRIL) 5 Mg Tablet, 5 MG PO DAILY for 30 Days, TAB Prov:SAHRA MOY MD 02/15/21 Carvedilol (CARVEDILOL) 3.125 Mg Tablet, 3.125 MG PO BID for 30 Days, TAB Prov:SAHRA MOY MD 02/15/21 Past Medical History Medical History: cancer Surgical History: cancer surgery, hysterectomy Family History Significant Family History: no pertinent family hx Social History Smoking: non-smoker Alcohol Use: none Drug Use: none Constitutional: no symptoms reported EENTM: no symptoms reported Respiratory: no symptoms reported Cardiovascular: see HPI Gastrointestinal: no symptoms reported Genitourinary: no symptoms reported All Other Systems: Reviewed and Negative Physical Exam General Appearance: No Apparent Distress, WD/WN Neck: Non-Tender, Full Range of Motion, Supple, Normal Inspection Respiratory: chest non-tender, lungs clear, normal breath sounds, no respiratory distress, no accessory muscle use Cardiovascular: Normal Peripheral Pulses, Regular Rate, Rhythm, No Edema, No Gallop, No JVD, No Murmur Gastrointestinal: Normal Bowel Sounds, No Organomegaly, No Pulsatile Mass, Non Tender, Soft Extremities: Normal Range of Motion, Non-Tender, Normal Inspection, No Pedal Edema, No Calf Tenderness, Normal Capillary Refill 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 Philip who did a heart cath on her a few days ago. He told me that his coronaries are clean and from cardiac standpoint, patient should be discharged back home. I further did a CTA of her chest to rule out PE and that came out negative. Patient is currently pain-free. Hospice was invited to the ED and [facility] patient who decided and agreed to go to hospice. They will be following up with her in her house today to set her up for hospice. Patient appreciative. EKG/XRAY/CT/US EKG: NSR EKG Comments: HR 105, sinus tachycardia CT Comments: CTA chest does not show PE. No acute abnormality. ER DEPART Departure Time of Disposition: 13:10 Disposition: 01 HOME / SELF CARE / HOMELESS Impression: Primary Impression: Congestive heart failure (CHF) Additional Impression: Chest pain Condition: Stable Referrals: PCP,UNKNOWN (PCP) PRIMARY CARE PROVIDER Additional Instructions: Tylenol #3 F/U with Hospice as scheduled today. Return to ED if any concerns Duration or Time Spent with Pa: 60 min Problem Qualifiers Primary Impression: Congestive heart failure (CHF) Heart failure type: combined systolic and diastolic Heart failure chronicity: chronic Qualified Codes: I50.42 - Chronic combined systolic (congestive) and diastolic (congestive) heart failure Additional Impression: Chest pain Chest pain type: unspecified Qualified Codes: R07.9 - Chest pain, unspec ified ARABELLA DIMAS MD Feb 16, 2021 10:36
[2021-02-16 10:39] LABS: BASOPHIL % 0.4 % (0.0-0.2); EOSINOPHIL # 0.3 10^3/uL (0.0-0.2); EOSINOPHIL % 2.9 % (0.0-5.0); LYMPHOCYTES # 2.38 10^3/uL1 (1.0-4.8); LYMPHOCYTES % 26.2 % (24.0-44.0); MEAN CORP HGB 29.7 pg (26-34); MONOCYTES # 0.3 10^3/uL (0.3-0.8); MONOCYTES % 3.4 % (5.0-12.0); NEUTROPHIL # 6.1 10^3/uL (1.8-7.7); NEUTROPHILS % 66.9 % (41.0-85.0); PLATELET COUNT 407 10^3/uL (150-400); RED CELL DISTRIBUTION WIDTH 14.3 % (11.5-14.5)
--- NOTE | 2021-02-16 10:41 | PCM.EKG ---
[facility] Test Date: 2021-02-16 Test Time: 10:35:08 Pat Name: MOO HUNT Department: Room: Gender: F Infection Preventionist: KD : 1970 Requested By: ARABELLA DIMAS Order Number: [id number] Reading MD: Arabella DIMAS Measurements Intervals [place] Rate: 105 P: 63 ID: [id number] QRS: -14 QRSD: 64 T: 242 QT: 408 QTc: 540 Interpretive Statements Sinus tachycardia Anteroseptal infarct, age indeterminate Prolonged QT interval Compared to ECG 02/12/2021 00:37:18 T-wave abnormality no longer present Electronically Signed On 02-18-2021 10:29:31 CDT by Arabella DIMAS Please click the below link to view image of tracing.
[2021-02-16 10:58] VITALS: BP 105/74
--- NOTE | 2021-02-16 10:59 | NUR ---
CRITICAL LAB DDIMER 0.[address] DIMAS.
[2021-02-16 11:21] LABS: CALCIUM 8.8 mg/dL (8.4-10.5); CARBON DIOXIDE 27.6 mmol/L (20.0-32)
[2021-02-16 12:13] VITALS: BP 112/87
[2021-02-16] MEDS ORDERED: DUO 0.5-3(2.5) MG/3 ML IH STA (12:13)
[2021-02-16] MEDS ORDERED: DECADRON IH STA (12:13)
--- NOTE | 2021-02-16 12:14 | NUR ---
RT RT CALLED FOR NEB TREATMENT.
--- NOTE | 2021-02-16 12:14 | NUR ---
DR SANDRITA JOENS MBA ON THE PHONE WITH DR REMY.
[2021-02-16] MEDS ORDERED: DECADRON ONE (12:15)
[2021-02-16] MEDS ORDERED: DUO 0.5-3(2.5) MG/3 ML IH ONE (12:15)
--- NOTE | 2021-02-16 12:29 | DIREP ---
PROCEDURE:CHEST 1 VIEW COMPARISON:[facility], CT, CTA CHEST, 02/11/2021, 08:25 PM. [facility], CR, XRAY CHEST SINGLE VW, 02/11/2021, 06:20 PM. INDICATIONS:chest pain FINDINGS: LUNGS/PLEURA:No significant pulmonary parenchymal abnormalities. Previously seen effusions appear to have resolved. VASCULATURE:Normal. Unremarkable pulmonary vasculature. CARDIAC:Normal. No cardiac silhouette abnormality or cardiomegaly. MEDIASTINUM:Normal. No visible mass or adenopathy. BONES:Normal. No fracture or visible bony lesion. OTHER:Surgical clips project over the left axilla CONCLUSION: Decreased pulmonary vascular congestion compared to the prior study. Previously seen effusions appear to have resolved. No acute cardiopulmonary abnormality. Dictated by: Jj Mills M.D. On 02/16/2021 at 11:10 AM
--- NOTE | 2021-02-16 12:51 | DIREP ---
PROCEDURE:CTA CHEST COMPARISON:[facility], CT, CTA CHEST, 02/11/2021, 08:25 PM. INDICATIONS:Chest pain TECHNIQUE:Post contrast axial images through the chest with multiplanar MIP/3D reconstructions. FINDINGS: PULMONARY ARTERIES:Adequately opacified. No filling defect to suggest pulmonary embolus. LUNGS:No significant pulmonary parenchymal abnormalities. PLEURA:Normal. The previous noted effusions have resolved. CARDIAC:Normal size heart and normal pulmonary vascularity. THORACIC AORTA:Normal. MEDIASTINUM:Normal. THYROID:Normal. BONES:Mild degenerative changes. OTHER:No additional findings. CONCLUSION:No CT evidence of pulmonary embolus. No acute pulmonary process. Dictated by: Adam Barajas M.D. on 02/16/2021 at 12:43 PM
--- NOTE | 2021-02-16 12:55 | NUR ---
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 CONTROL ROOM SUPERVISOR Amanda SHAIKH CONTACTED [facility] WHO HAS AGREED TO TAKE PT A LUISA CASE.
--- NOTE | 2021-02-16 13:09 | NUR ---
[facility]. NURSE AT BEDSIDE TO DISCUSS HOSPICE SERVICES. PT ACCEPTED HOSPICE CARE AND WILL CONTACT [facility] UPON ARRIVAL TO HOME FOR COMPLETION OF ADMISSION.
[2021-02-16 13:13] VITALS: BP 101/58
== END 2021-02-16 13:16 ==
LOC: ER 10:07 → EDBD 10:07 → ER 13:16
DX: I50.42 Chronic combined systolic (congestive) and diastolic (congestive) heart failure (principal); I42.0 Dilated cardiomyopathy; I25.5 Ischemic cardiomyopathy; Z79.899 Other long term (current) drug therapy; Z88.6 Allergy status to analgesic agent; Z90.710 Acquired absence of both cervix and uterus
CPT/HCPCS: 36415; 71045; 71275; 80053; 82550; 82553; 83880; 84484; 85025; 85379; 85610; 85730; 93005; 94640; 99285; J1100; Q9965